=== PATIENT | male | born 1960 ===

== ENCOUNTER 2020-04-19 21:29 | Inpatient (IN) ==
[2020-04-19 23:20] LABS: Basophils # 0.1 K/mcL (0.0-0.2); Basophils % 0.3 %; Hematocrit 45.4 % (37.5-50.1); Hemoglobin 16.3 g/dL (12.9-16.9); Immature Granulocytes % 0.6 % (0-4); Lymphocytes # 1.7 K/mcL (0.6-4.6); Lymphocytes % 8.6 %; Mean Corpuscular HGB Conc 35.9 g/dL (31.6-35.5); Mean Corpuscular Hemoglobin 34.3 pg (28.0-33.3); Mean Corpuscular Volume 95.6 fL (83.0-100.0); Mean Platelet Volume 10.9 fL (9.4-12.4); Monocytes % 9.9 %; Neutrophils # 16.2 K/mcL (1.6-8.9); Platelet Count 220 K/mcL (140-400); Red Blood Count 4.75 M/mcL (4.19-5.50); Red Cell Distribution Width 11.3 % (11.5-14.5); Segmented Neutrophils % 80.6 %; White Blood Count 20.2 K/mcL (4.3-11.1)
[2020-04-19 23:28] LABS: Prothrombin Time 11.6 Seconds (9.4-12.1)
[2020-04-19 23:30] LABS: Alanine Aminotransferase 63 Units/L (7-52); Albumin 3.7 g/dL (3.5-5.7); Albumin/Globulin Ratio 0.9 (1.1-2.2); Alkaline Phosphatase 108 Units/L (34-104); Aspartate Amino Transferase 74 Units/L (13-39); BUN/Creatinine Ratio 13 (6-26); Bilirubin,Direct 0.2 mg/dL (0.0-0.2); Bilirubin,Indirect 0.5 mg/dL (0.0-1.0); Bilirubin,Total 0.7 mg/dL (0.3-1.0); Blood Urea Nitrogen 7 mg/dL (6-20); Calcium 8.9 mg/dL (8.6-10.3); Carbon Dioxide 20 mEq/L (23-29); Chloride 91 mEq/L (98-107); Globulin 3.9 g/dL (2.4-3.5); Glucose 108 mg/dL (70-105); Lipase 29 Units/L (11-82); Osmolality,Calculated 253 (280-300); Potassium 4.4 mEq/L (3.5-5.1); Sodium 122 mEq/L (136-145); Total Protein 7.6 g/dL (6.4-8.9); eGFR For African Americans > 60 (> 60); eGFR For Non-African Americans > 60 (> 60)
[2020-04-20] MEDS ORDERED: Piperacillin/Tazobactam 3.375 GM in 0.9 % Sodium Chloride Mini Bag 100 ML IVPB ONE (00:20)
[2020-04-20 00:35] LABS: Bilirubin,Urine Negative (Negative); Blood,Urine Negative (Negative); Clarity,Urine Clear (Clear); Color,Urine Light-Yellow (Yellow); Glucose,Urine (UA) Normal (Normal); Ketones,Urine Negative (Negative); Leukocyte Esterase,Urine Negative (Negative); Nitrite,Urine Negative (Negative); Protein,Urine Trace mg/dL (Neg-Trace); Specific Gravity,Urine 1.008 (1.010-1.025); Urobilinogen,Urine Normal (Normal)
[2020-04-20] MEDS ORDERED: *HR* LORazepam 2 MG/ML VIAL IVP PRN ×3 (05:32)
[2020-04-20] MEDS ORDERED: Ondansetron 4 MG/2 ML VIAL IVP PRN ×2 (05:37→08:17)
[2020-04-20] MEDS ORDERED: Acetaminophen 325 MG TABLET PO PRN ×2 (05:37→11:41)
[2020-04-20] MEDS ORDERED: Naloxone 0.4 MG/ML INJ IVP PRN (08:16)
[2020-04-20 09:00] LABS: Basophils # 0.1 K/mcL (0.0-0.2); Basophils % 0.5 %; Hematocrit 45.3 % (37.5-50.1); Hemoglobin 15.8 g/dL (12.9-16.9); Immature Granulocytes % 0.5 % (0-4); Lymphocytes % 6.3 %; Mean Corpuscular HGB Conc 34.9 g/dL (31.6-35.5); Mean Corpuscular Hemoglobin 33.7 pg (28.0-33.3); Mean Corpuscular Volume 96.6 fL (83.0-100.0); Mean Platelet Volume 10.5 fL (9.4-12.4); Monocytes # 1.3 K/mcL (0.0-1.3); Monocytes % 8.3 %; Platelet Count 212 K/mcL (140-400); Red Blood Count 4.69 M/mcL (4.19-5.50); Red Cell Distribution Width 11.4 % (11.5-14.5); Segmented Neutrophils % 84.4 %; White Blood Count 15.3 K/mcL (4.3-11.1)
[2020-04-20 09:24] LABS: BUN/Creatinine Ratio 16 (6-26); Blood Urea Nitrogen 8 mg/dL (6-20); Calcium 9.2 mg/dL (8.6-10.3); Carbon Dioxide 23 mEq/L (23-29); Chloride 95 mEq/L (98-107); Glucose 91 mg/dL (70-105); Osmolality,Calculated 262 (280-300); Potassium 4.9 mEq/L (3.5-5.1); Sodium 127 mEq/L (136-145); eGFR For African Americans > 60 (> 60); eGFR For Non-African Americans > 60 (> 60)
[2020-04-20] MEDS: Thiamine (B-1) 200 MG in 0.9 % Sodium Chloride 50 ML IVPB SCH (10:02)
[2020-04-20] MEDS: Nicotine 21 MG PATCH.TD24 TD SCH (10:03)
[2020-04-20] MEDS: Piperacillin/Tazobactam 3.375 GM in 0.9 % Sodium Chloride Mini Bag 100 ML IVPB SCH ×4 (10:03→23:25)
[2020-04-20] MEDS: *HR* OxyCODONE/APAP 5/325 TABLET PO PRN (12:33)
[2020-04-20] MEDS ORDERED: *HR* FentaNYL (PF) 100 MCG/2 ML VIAL ONE (17:40)
[2020-04-20] MEDS ORDERED: *HR* Midazolam HCl 5 MG/5 ML VIAL IVP ONE (17:40)
[2020-04-20] MEDS ORDERED: *HR* FentaNYL (PF) 100 MCG/2 ML VIAL IVP ONE (17:43)
[2020-04-20] MEDS: *HR* Midazolam HCl 5 MG/5 ML VIAL IVP ONE ×2 (17:47→17:55)
[2020-04-21 05:39] LABS: Basophils # 0.1 K/mcL (0.0-0.2); Basophils % 0.5 %; Eosinophils % 0.2 %; Hematocrit 43.1 % (37.5-50.1); Immature Granulocytes % 0.4 % (0-4); Lymphocytes # 1.8 K/mcL (0.6-4.6); Lymphocytes % 15.7 %; Mean Corpuscular HGB Conc 34.8 g/dL (31.6-35.5); Mean Corpuscular Hemoglobin 33.6 pg (28.0-33.3); Mean Corpuscular Volume 96.6 fL (83.0-100.0); Monocytes # 1.4 K/mcL (0.0-1.3); Monocytes % 12.2 %; Neutrophils # 7.9 K/mcL (1.6-8.9); Platelet Count 208 K/mcL (140-400); Red Blood Count 4.46 M/mcL (4.19-5.50); Red Cell Distribution Width 11.5 % (11.5-14.5); White Blood Count 11.2 K/mcL (4.3-11.1)
[2020-04-21 05:45] LABS: Prothrombin Time 11.8 Seconds (9.4-12.1)
[2020-04-21 05:59] LABS: BUN/Creatinine Ratio 19 (6-26); Blood Urea Nitrogen 11 mg/dL (6-20); Calcium 8.8 mg/dL (8.6-10.3); Carbon Dioxide 24 mEq/L (23-29); Chloride 98 mEq/L (98-107); Glucose 123 mg/dL (70-105); Osmolality,Calculated 269 (280-300); Potassium 4.3 mEq/L (3.5-5.1); Sodium 129 mEq/L (136-145); eGFR For African Americans > 60 (> 60); eGFR For Non-African Americans > 60 (> 60)
[2020-04-21 06:02] LABS: Albumin 3.3 g/dL (3.5-5.7); Bilirubin,Direct 0.2 mg/dL (0.0-0.2); Bilirubin,Indirect 0.3 mg/dL (0.0-1.0); Bilirubin,Total 0.5 mg/dL (0.3-1.0); Globulin 3.2 g/dL (2.4-3.5); Total Protein 6.5 g/dL (6.4-8.9)
[2020-04-21] MEDS: *HR* OxyCODONE/APAP 5/325 TABLET PO PRN ×3 (06:22→19:33)
[2020-04-21 07:12] LABS: Hepatitis B Surface Antigen Nonreactive (Nonreactive)
[2020-04-21 07:42] LABS: Hepatitis B Core IgM Nonreactive (Nonreactive)
[2020-04-21 07:43] LABS: Hepatitis A Antibody IgM Nonreactive (Nonreactive)
[2020-04-21] MEDS: Piperacillin/Tazobactam 3.375 GM in 0.9 % Sodium Chloride Mini Bag 100 ML IVPB SCH ×2 (09:03→16:28)
[2020-04-21] MEDS: Nicotine 21 MG PATCH.TD24 TD SCH (09:03)
[2020-04-21 09:27] LABS: Hepatitis C Virus Antibody Reactive (Nonreactive)
[2020-04-21] MEDS: Thiamine (B-1) 200 MG in 0.9 % Sodium Chloride 50 ML IVPB SCH (12:14)
[2020-04-22] MEDS: Piperacillin/Tazobactam 3.375 GM in 0.9 % Sodium Chloride Mini Bag 100 ML IVPB SCH ×4 (00:08→23:12)
[2020-04-22] MEDS: *HR* OxyCODONE/APAP 5/325 TABLET PO PRN ×3 (02:34→18:24)
[2020-04-22 04:25] LABS: Basophils # 0.1 K/mcL (0.0-0.2); Basophils % 0.5 %; Eosinophils % 0.4 %; Hematocrit 42.9 % (37.5-50.1); Immature Granulocytes % 0.5 % (0-4); Lymphocytes # 1.7 K/mcL (0.6-4.6); Lymphocytes % 15.9 %; Mean Corpuscular Hemoglobin 34.3 pg (28.0-33.3); Mean Corpuscular Volume 98.2 fL (83.0-100.0); Mean Platelet Volume 10.7 fL (9.4-12.4); Monocytes # 1.2 K/mcL (0.0-1.3); Monocytes % 10.9 %; Neutrophils # 7.9 K/mcL (1.6-8.9); Platelet Count 227 K/mcL (140-400); Red Blood Count 4.37 M/mcL (4.19-5.50); Red Cell Distribution Width 11.2 % (11.5-14.5); Segmented Neutrophils % 71.8 %; White Blood Count 10.9 K/mcL (4.3-11.1)
[2020-04-22 04:44] LABS: BUN/Creatinine Ratio 18 (6-26); Blood Urea Nitrogen 9 mg/dL (6-20); Calcium 8.9 mg/dL (8.6-10.3); Carbon Dioxide 24 mEq/L (23-29); Chloride 100 mEq/L (98-107); Glucose 126 mg/dL (70-105); Osmolality,Calculated 272 (280-300); Potassium 3.9 mEq/L (3.5-5.1); Sodium 131 mEq/L (136-145); eGFR For African Americans > 60 (> 60); eGFR For Non-African Americans > 60 (> 60)
[2020-04-22] MEDS: Nicotine 21 MG PATCH.TD24 TD SCH (08:57)
[2020-04-22] MEDS: Thiamine (B-1) 200 MG in 0.9 % Sodium Chloride 50 ML IVPB SCH (09:03)
[2020-04-22] MEDS ORDERED: Nicotine 21 MG PATCH.TD24 TD ONE (16:36)
[2020-04-23] MEDS: *HR* OxyCODONE/APAP 5/325 TABLET PO PRN ×3 (01:21→14:54)
[2020-04-23 04:27] LABS: Basophils # 0.1 K/mcL (0.0-0.2); Basophils % 0.6 %; Eosinophils # 0.1 K/mcL (0.0-0.6); Eosinophils % 0.6 %; Hematocrit 43.1 % (37.5-50.1); Hemoglobin 14.8 g/dL (12.9-16.9); Immature Granulocytes % 0.7 % (0-4); Lymphocytes # 1.9 K/mcL (0.6-4.6); Lymphocytes % 19.2 %; Mean Corpuscular HGB Conc 34.3 g/dL (31.6-35.5); Mean Corpuscular Hemoglobin 33.4 pg (28.0-33.3); Mean Corpuscular Volume 97.3 fL (83.0-100.0); Mean Platelet Volume 10.3 fL (9.4-12.4); Monocytes # 1.2 K/mcL (0.0-1.3); Monocytes % 11.6 %; Neutrophils # 6.8 K/mcL (1.6-8.9); Platelet Count 236 K/mcL (140-400); Red Blood Count 4.43 M/mcL (4.19-5.50); Red Cell Distribution Width 11.5 % (11.5-14.5); Segmented Neutrophils % 67.3 %; White Blood Count 10.1 K/mcL (4.3-11.1)
[2020-04-23 04:48] LABS: BUN/Creatinine Ratio 16 (6-26); Blood Urea Nitrogen 8 mg/dL (6-20); Carbon Dioxide 24 mEq/L (23-29); Chloride 102 mEq/L (98-107); Glucose 105 mg/dL (70-105); Osmolality,Calculated 277 (280-300); Potassium 4.1 mEq/L (3.5-5.1); Sodium 134 mEq/L (136-145); eGFR For African Americans > 60 (> 60); eGFR For Non-African Americans > 60 (> 60)
[2020-04-23] MEDS: Piperacillin/Tazobactam 3.375 GM in 0.9 % Sodium Chloride Mini Bag 100 ML IVPB SCH (08:54)
[2020-04-23] MEDS: Nicotine 21 MG PATCH.TD24 TD SCH (08:55)
[2020-04-23 10:50] VITALS: BP 148/73
== END 2020-04-23 15:12 | disposition home or self-care (01) | DRG 254 ==
LOC: EMEROOARM 21:29 → 3ANU 21:29 → SUATTDRO 04-20 01:31 → 3ANU 04-20 01:55
PROVIDERS: ADMIT Family Medicine; ATTEND Internal Medicine